=== PATIENT | male | born 1995 | race African-American/Black ===

== ENCOUNTER 2023-01-24 12:24 | Emergency (ER) | payer OTHER, SELFPAY ==
[2023-01-24 13:21] LABS: #Basophils 0.1 10x3/uL (0.0-0.2); #Eosinphils 0.3 10x3/uL (0.0-0.5); #Monocytes 0.9 10x3/uL (0.0-1.1); #Neutrophils 6.2 10x3/uL (1.5-8.4); %Basophils 0.8 % (0.0-2.0); %Lymphocytes 15.3 % (18.0-47.0); %Monocytes 9.8 % (0.0-10.0); %Neutrophils 70.5 % (40.0-75.0); Hematocrit 44.7 % (38.8-50.0); Hemoglobin 14.5 g/dL (13.5-17.5); Mean Corpuscular HGB CONC 32.4 g/dL (32.0-36.0); Mean Corpuscular Hemoglobin 26.8 pg (27.0-33.0); Mean Corpuscular Volume 82.5 fl (81.2-95.1); Mean Platelet Volume 9.9 fl (7.4-10.4); Platelet Count 257 10x3/uL (150-450); RBC Distribution Width 13.6 % (11.5-14.5); Red Blood Cell (RBC) Count 5.42 10x6/uL (4.32-5.72); White Blood Cell (WBC) Count 8.8 10x3/uL (3.5-10.5)
[2023-01-24] MEDS ORDERED: cefTRIAXone (ROCEPHIN) 1 GM VIAL ONE (13:49)
[2023-01-24 13:53] LABS: ALT (SGPT) 9 U/L (8-55); Bilirubin, Total 0.4 mg/dL (0.2-1.2); Calc. Creatinine Clearance 0 mL/min (70-130); Chloride 106 mmol/L (98-107); Sodium 142 mmol/L (136-145)
[2023-01-24 14:37] LABS: AST (SGOT) 13 U/L (5-34); Albumin 3.6 g/dL (3.5-5.0); Alkaline Phosphatase 61 U/L (40-110); Anion Gap 17 mmol/L (10-20); BUN (Urea Nitrogen) 23 mg/dL (8.9-20.6); Calcium 8.9 mg/dL (7.8-10.44); Carbon Dioxide 23 mmol/L (22-29); Estimated GFR 125; Globulin 3.2 g/dL (2.4-3.5); Glucose 88 mg/dL (70-105); Potassium 3.8 mmol/L (3.5-5.1); Protein, Total 6.8 g/dL (6.0-8.3)
[2023-01-24 17:37] LABS: Bilirubin Neg (Negative); Blood, Urine 250 (Negative); Glucose, Urine (Dipstick) Normal (Negative); Ketone, Urine Negative (Negative); Leukocyte 25 (Negative); Nitrite Negative (Negative); Protein, Urine (Dipstick) 100 mg/dl (Neg-Trace); Specific Gravity, Urine 1.015 (1.005-1.030)
[2023-01-24 17:42] LABS: Clarity Cloudy (Clear)
[2023-01-24 17:44] LABS: Bacteria/HPF Rare-Few HPF (None Seen); CAUTI Indications for Culture Dysuria,urgency,freq; RBC/HPF Greater than 50 HPF (0-3); Squamous Epithelial 0-3 HPF (0-3); WBC/HPF 0-3 HPF (0-3)
[2023-01-24 17:45] LABS: Urine Culture Reflex No No
== END 2023-01-24 19:32 | disposition home or self-care (01) ==
LOC: CSHERS 12:24
DX: R31.9 Hematuria, unspecified (principal); G82.20 Paraplegia, unspecified; L89.159 Pressure ulcer of sacral region, unspecified stage; I10 Essential (primary) hypertension
CPT/HCPCS: 36415; 80053; 81001; 83605; 85025; 87040; 93005; 96374; J0696